=== PATIENT | male | born 1970 | race Two or more races ===

== ENCOUNTER 2020-09-17 15:38 | Emergency (ER) | payer OTHER ==
[~2020-09-17] VITALS: Ht 172.7 cm; Wt 95.3 kg
[2020-09-17 16:11] VITALS: BP 176/100
== END 2020-09-17 22:28 | disposition home or self-care (01) ==
LOC: ER 15:38
DX: S43.402A Unspecified sprain of left shoulder joint, initial encounter (principal); S00.03XA Contusion of scalp, initial encounter; V49.9XXA Car occupant (driver) (passenger) injured in unspecified traffic accident, initial encounter; Y93.89 Activity, other specified; Y92.89 Other specified places as the place of occurrence of the external cause; Y99.8 Other external cause status
CPT/HCPCS: 70450; 71046; 73030

== ENCOUNTER 2024-05-19 22:38 | Emergency (ER) | payer OTHER ==
[~2024-05-19] VITALS: Ht 170.2 cm; Wt 86.0 kg
[2024-05-20 00:56] VITALS: BP 127/85; PULSE 80; RESP 18; TEMP 98; O2SAT 96
[2024-05-20] MEDS: KETOROLAC TROMETH 60MG/2ML VIAL IM ONE (01:00)
[2024-05-20] MEDS: HYDROcodone-ACET 5/325MG TAB PO ONE (01:01)
[2024-05-20] MEDS ORDERED: IBUP-1456 PO (01:17)
[2024-05-20] MEDS ORDERED: HYDR-4902 PO (01:17)
== END 2024-05-20 01:56 | disposition home or self-care (01) ==
LOC: ER 22:38
DX: S70.02XA Contusion of left hip, initial encounter (principal); E11.9 Type 2 diabetes mellitus without complications; E78.5 Hyperlipidemia, unspecified; I10 Essential (primary) hypertension; Z90.49 Acquired absence of other specified parts of digestive tract; W22.8XXA Striking against or struck by other objects, initial encounter; Y93.89 Activity, other specified; Y92.69 Other specified industrial and construction area as the place of occurrence of the external cause; Y99.8 Other external cause status
CPT/HCPCS: 73552; 73562; 96372; 99284; J1885